=== PATIENT | male | born 1985 | race Caucasian/White ===

== ENCOUNTER 2019-11-26 01:47 | Emergency (ER) | payer SELFPAY ==
[~2019-11-26] VITALS: Ht 172.7 cm; Wt 79.5 kg
[2019-11-26 01:52] VITALS: BP 132/89; Ht 172.7 cm; Wt 79.5 kg
== END 2019-11-26 02:10 | disposition home or self-care (01) ==
LOC: D.ER 01:47
DX: F22 Delusional disorders (principal); R41.82 Altered mental status, unspecified